=== PATIENT | male | born 2000 | race Two or more races ===

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

== ENCOUNTER 2021-04-10 16:55 | Emergency (ER) | payer MEDICAID, OTHER ==
[~2021-04-10] VITALS: Ht 185.4 cm; Wt 131.1 kg
[2021-04-10] MEDS ORDERED: methylPREDNISolone SOD SUCC 125 MG/2 ML VL IM ONE (19:30)
[2021-04-10] MEDS ORDERED: KETOROLAC TROMETH 60MG/2ML VIAL IM ONE (19:30)
[2021-04-10 19:51] VITALS: BP 139/73
== END 2021-04-10 20:26 | disposition home or self-care (01) ==
LOC: ER 16:55
DX: S33.5XXA Sprain of ligaments of lumbar spine, initial encounter (principal); S16.1XXA Strain of muscle, fascia and tendon at neck level, initial encounter; M62.838 Other muscle spasm; M62.830 Muscle spasm of back; E66.9 Obesity, unspecified; Z68.35 Body mass index [BMI] 35.0-35.9, adult; W01.0XXA Fall on same level from slipping, tripping and stumbling without subsequent striking against object, initial encounter; Y93.89 Activity, other specified; Y92.89 Other specified places as the place of occurrence of the external cause; Y99.0 Civilian activity done for income or pay
CPT/HCPCS: 72100; 96372; 99284; J1885; J2930

== ENCOUNTER 2021-07-24 04:50 | Emergency (ER) | payer MEDICAID, OTHER ==
[~2021-07-24] VITALS: Ht 185.4 cm; Wt 30.4 kg
[2021-07-24 05:04] VITALS: BP 134/83
== END 2021-07-24 07:05 | disposition left against medical advice (07) ==
LOC: ER 04:50
DX: K08.89 Other specified disorders of teeth and supporting structures (principal); Z53.21 Procedure and treatment not carried out due to patient leaving prior to being seen by health care provider

== ENCOUNTER 2022-03-07 10:50 | Emergency (ER) | payer MEDICAID ==
[~2022-03-07] VITALS: Ht 185.4 cm; Wt 147.0 kg
[2022-03-07 10:50] VITALS: BP 161/102
[2022-03-07] MEDS ORDERED: CLINDAMYCIN 900MG IV 50 ML IV ONE (14:00)
[2022-03-07] MEDS ORDERED: methylPREDNISolone SOD SUCC 125 MG/2 ML VL IV ONE (14:00)
[2022-03-07] MEDS ORDERED: cefTRIAXone 1GM/50ML D5W 50 ML IV ONE (14:00)
[2022-03-07 14:59] LABS: Albumin 4.5 g/dL (3.4-5.0); BUN/Creatinine Ratio 11.1; Calcium 9.3 mg/dL (8.5-10.1); Potassium 3.7 mmol/L (3.5-5.1)
[2022-03-07 15:09] LABS: Total Protein 8.9 g/dL (6.4-8.2)
[2022-03-07 15:51] LABS: Basophils # (auto) 0 10 ^3/uL (0-0.2); Basophils % (auto) 0.4 % (0.0-2.0); Eosinophils # (auto) 0.2 10 ^3/uL (0-0.8); Hematocrit 49.6 % (41.0-53.0); Hemoglobin 16.2 g/dL (13.5-17.5); Lymphocytes # (auto) 2.9 10 ^3/uL (0.4-5.4); Lymphocytes % (auto) 24.8 % (10.0-50.0); Mean Corpuscular Hemoglobin 26.9 pg (28.0-32.0); Mean Corpuscular Hgb Conc. 32.5 g/dL (32.0-36.0); Mean Corpuscular Volume 82.8 fL (80.0-100.0); Monocytes # (auto) 0.7 10 ^3/uL (0-1.3); Monocytes % (auto) 5.6 % (0.0-12.0); Neutrophils # (auto) 7.9 10 ^3/uL (1.6-8.6); Neutrophils % (auto) 67.2 % (37.0-80.0); Red Cell Distribution Width 13.8 % (11.8-14.3); White Blood Cell 11.7 10^3/uL (4.4-10.8)
[2022-03-07] MEDS ORDERED: CLIN300C8 PO (15:55)
[2022-03-07] MEDS ORDERED: PRED20TA2 PO (15:55)
[2022-03-07] MEDS ORDERED: IBUP800T27 PO (15:55)
== END 2022-03-07 16:39 | disposition home or self-care (01) ==
LOC: ER 10:50
DX: L03.211 Cellulitis of face (principal); R59.0 Localized enlarged lymph nodes; J45.909 Unspecified asthma, uncomplicated; Z79.1 Long term (current) use of non-steroidal anti-inflammatories (NSAID); Z79.2 Long term (current) use of antibiotics; Z79.899 Other long term (current) drug therapy
CPT/HCPCS: 36415; 70487; 70491; 80053; 83605; 85025; 87040; 96365; 96366; 96367; 96375; 99285; J0696; J2930; J3490; Q9967

== ENCOUNTER 2022-10-11 16:44 | Emergency (ER) | payer MEDICAID, OTHER ==
[~2022-10-11] VITALS: Ht 185.4 cm; Wt 149.5 kg
[~2022-10-11 16:44] MED LIST: CLIN300C8 PO; IBUP800T27 PO; PRED20TA2 PO
[2022-10-11] MEDS ORDERED: KETOROLAC TROMETH 60MG/2ML VIAL IM ONE (22:00)
[2022-10-11 22:55] VITALS: BP 119/69
== END 2022-10-12 00:19 | disposition home or self-care (01) ==
LOC: ER 16:44
DX: M79.602 Pain in left arm (principal); R07.81 Pleurodynia; M25.512 Pain in left shoulder; F12.10 Cannabis abuse, uncomplicated; F17.210 Nicotine dependence, cigarettes, uncomplicated; J45.909 Unspecified asthma, uncomplicated; V43.52XA Car driver injured in collision with other type car in traffic accident, initial encounter; Y93.89 Activity, other specified; Y92.89 Other specified places as the place of occurrence of the external cause; Y99.8 Other external cause status
CPT/HCPCS: 71046; 71111; 72100; 73030; 73060; 73080; 93005; 96372; 99284; J1885

== ENCOUNTER 2024-04-22 19:55 | Emergency (ER) | payer MEDICAID, OTHER ==
[~2024-04-22] VITALS: Ht 185.4 cm; Wt 154.1 kg
[~2024-04-22 19:55] MED LIST changes: +CLIN1CAP70 PO; -CLIN300C8 PO; +IBUP-1456 PO; -IBUP800T27 PO
[2024-04-22 20:09] VITALS: BP 146/88; PULSE 105; RESP 18; TEMP 97.1; O2SAT 97
[2024-04-22] MEDS ORDERED: CYCL-837 PO (23:02)
== END 2024-04-22 23:32 | disposition home or self-care (01) ==
LOC: ER 19:55
DX: S70.01XA Contusion of right hip, initial encounter (principal); S20.213A Contusion of bilateral front wall of thorax, initial encounter; J45.909 Unspecified asthma, uncomplicated; Z98.890 Other specified postprocedural states; Z79.899 Other long term (current) drug therapy; V43.51XA Car driver injured in collision with sport utility vehicle in traffic accident, initial encounter; Y93.I9 Activity, other involving external motion; Y92.89 Other specified places as the place of occurrence of the external cause; Y99.8 Other external cause status